=== PATIENT | female | born 1975 | race Caucasian/White ===

== ENCOUNTER 2017-06-25 22:13 | Inpatient (IN) ==
[2017-06-25 23:56] LABS: Basophils % 0.2 %; Hematocrit 43.9 % (35.3-44.9); Hemoglobin 14.9 g/dL (11.5-15.4); Immature Granulocytes % 0.4 % (0-4); Lymphocytes # 1.5 K/mcL (0.6-4.6); Lymphocytes % 18.2 %; Mean Corpuscular HGB Conc 33.9 g/dL (31.6-35.5); Mean Corpuscular Volume 91.5 fL (83.0-100.0); Mean Platelet Volume 8.8 fL (9.4-12.4); Monocytes # 0.6 K/mcL (0.0-1.3); Monocytes % 7.4 %; Neutrophils # 5.9 K/mcL (1.6-8.9); Platelet Count 258 K/mcL (140-400); Segmented Neutrophils % 73.8 %
[2017-06-26 00:15] LABS: BUN/Creatinine Ratio 17 (6-26); Blood Urea Nitrogen 11 mg/dL (6-20); Calcium 9.4 mg/dL (8.6-10.3); Carbon Dioxide 22 mEq/L (23-29); Chloride 108 mEq/L (98-107); Glucose 101 mg/dL (70-105); Osmolality,Calculated 286 (280-300); Potassium 3.9 mEq/L (3.5-5.1); Sodium 138 mEq/L (136-145); eGFR For African Americans > 60 (> 60); eGFR For Non-African Americans > 60 (> 60)
--- NOTE | 2017-06-26 01:13 | Emergency Department Note ---
Disposition Clinical Impression: Congestive heart failure Qualifiers: Heart failure type: unspecified Heart failure chronicity: unspecified Qualified Code(s): I50.9 - Heart failure, unspecified Disposition: Admitted As Inpatient Condition: Good Referrals: Janice Carpenter CNP [Primary Care Provider] - Forms: ED Satisfaction Letter Time of Disposition: 03:25 General Adult HPI - General Chief complaint: ED Shortness of Breath/Dyspnea Stated complaint: mile Time Seen by Provider: 06/26/17 00:56 Source: patient Mode of arrival: ambulatory Limitations: no limitations Nursing Notes Reviewed: Yes Vital Signs Reviewed: Yes - History of Present Illness HPI Narrative: 42-year-old female with history of hypertension but does not take any medications for this for evaluation of dyspnea as well as intermittent back pain. Symptom onset spelled the past few days. Patient notes some orthopnea and worse at night with lying back. The patient reports a cough but it appears to be nonproductive. Patient also notes back pain which appears to be localized appears to be intermittent between her shoulder blades at times. Patient currently denying any pain. Denies any nausea vomiting diaphoresis. Reports a history of hypertension but states that she did not taking medications because of side effects. Patient denies any history of heart disease. No history of congestive heart failure. No diabetes. Patient denies any lower extremity edema. Pain Scale: 3 - Related Data Allergies Allergy/AdvReac Type Severity Reaction Status Date / Time No Known Allergies Allergy Verified 06/25/17 22:14 All systems ED: reviewed and negative except as stated. Constitutional: Denies: fever Cardiovascular: Denies: chest pain Respiratory: Reports: cough, dyspnea. Denies: sputum production Gastrointestinal: Denies: abdominal pain, nausea, vomiting, diarrhea Musculoskeletal: Reports: back pain Past Medical History - Past Medical History Source: patient Medical history: Reports: hypertension - Social History Smoking Status: Never smoker Alcohol use: Reports: occasionally, recent Physical Exam - General Limitations: no limitations General appearance: alert, in no apparent distress - Head Head exam: atraumatic, normocephalic, normal inspection - Eye Eye exam: Present: normal appearance, PERRL, EOMI - ENT ENT exam: normal exam, normal oropharynx, mucous membranes moist - Neck Neck exam: Present: normal inspection - Chest Chest inspection: Present: normal inspection, symmetric chest wall rise - Respiratory Respiratory exam: Present: normal lung sounds bilaterally. Absent: respiratory distress, accessory muscle use - Cardiovascular Cardiovascular exam: Present: regular rate, normal rhythm. Absent: systolic murmur - Abdominal Exam Abdominal exam: Present: soft, Non-Tender - Extremities Exam Extremities exam: Present: normal inspection. Absent: pedal edema - Back Exam Back exam: Present: normal inspection - Neurological Exam Neurological exam: Present: alert, oriented X3, CN II-XII intact - Skin Skin exam: Present: warm, dry, intact, normal color Course Course Narrative: Patient seen and examined. Patient denies any pain medicine at this time. Patient's not hypoxic. Patient's labs initially ordered from triage. Patient does have uncontrolled hypertension. Patient's troponins negative. BNP mildly elevated. Chest x-ray shows evidence of congestive heart failure with pulmonary vascular congestion. Patient will get Lasix as well as nitroglycerin. Disposition likely admission for new onset heart failure. - Reevaluation(s) Reevaluation #1: Serial EKGs show no changes. Patient does have a left bundle branch with no evidence of Sgarbossa criteria. Patient does have evidence of left ventricular hypertrophy. Time: 02:04 Vital Signs Temperature 97.4 F L 06/25/17 22:14 Pulse Rate 115 06/25/17 22:14 Respiratory Rate 22 06/25/17 22:14 Blood Pressure 217/149 06/25/17 22:14 O2 Sat by Pulse Oximetry 94 06/25/17 22:14 Temperature 97.4 F L 06/25/17 22:14 Pulse Rate 103 06/26/17 01:21 Respiratory Rate 16 06/26/17 01:21 Blood Pressure 197/142 06/26/17 01:21 O2 Sat by Pulse Oximetry 96 06/26/17 01:21 Oxygen Delivery Oxygen Delivery Room Air Medical Decision Making - MDM Narrative Medical decision making narrative: Patient presents with new onset heart failure. Patient does have elevated BNP with chest x-ray findings consistent with congestive heart failure or pulmonary edema. Patient received nitroglycerin as well as Lasix. Patient does not require any supplement oxygen. Patient did get a CTA of the chest given concerns of aortic pathology with back pain as well as pulmonary embolism given the degree of subjective dyspnea. Patient will be admitted to the hospitalist service for further care management likely stress test and formal echo to evaluate heart function. Patient's agreeable to plan of care. - Lab Data Lab results reviewed: Yes I reviewed the patient's lab results. Result diagrams: 06/25/17 23:49 06/25/17 23:49 Lab Results 06/25/17 06/25/17 06/25/17 Range/Units 23:49 23:49 23:49 WBC 8.0 (4.3-11.1) K/mcL RBC 4.80 (3.82-4.97) M/mcL Hgb 14.9 (11.5-15.4) g/dL Hct 43.9 (35.3-44.9) % MCV 91.5 (83.0-100.0) fL MCH 31.0 (28.0-33.3) pg MCHC 33.9 (31.6-35.5) g/dL RDW 13.0 (11.5-14.5) % Plt Count 258 (140-400) K/mcL MPV 8.8 L (9.4-12.4) fL Immature Gran % 0.4 (0-4) % Seg Neutrophils % 73.8 % Lymphocytes % 18.2 % Monocytes % 7.4 % Eosinophils % 0.0 % Basophils % 0.2 % Neutrophils # 5.9 (1.6-8.9) K/mcL Lymphocytes # 1.5 (0.6-4.6) K/mcL Monocytes # 0.6 (0.0-1.3) K/mcL Eosinophils # 0.0 (0.0-0.6) K/mcL Basophils # 0.0 (0.0-0.2) K/mcL Sodium 138 (136-145) mEq/L Potassium 3.9 (3.5-5.1) mEq/L Chloride 108 H (98-107) mEq/L Carbon Dioxide 22 L (23-29) mEq/L BUN 11 (6-20) mg/dL Creatinine 0.66 (0.60-1.20) mg/dL Est GFR ( Amer) > 60 (> 60) Est GFR (Non-Af Amer) > 60 (> 60) BUN/Creatinine Ratio 17 (6-26) Glucose 101 (70-105) mg/dL Calculated Osmolality 286 (280-300) Lactic Acid 0.8 (0.5-2.2) mmol/L Calcium 9.4 (8.6-10.3) mg/dL Troponin I (< 0.04) ng/mL B-Natriuretic Peptide (Less than 100) pg/mL Serum , Qual (Negative) 06/25/17 06/25/17 06/26/17 Range/Units 23:49 23:49 02:31 WBC (4.3-11.1) K/mcL RBC (3.82-4.97) M/mcL Hgb (11.5-15.4) g/dL Hct (35.3-44.9) % MCV (83.0-100.0) fL MCH (28.0-33.3) pg MCHC (31.6-35.5) g/dL RDW (11.5-14.5) % Plt Count (140-400) K/mcL MPV (9.4-12.4) fL Immature Gran % (0-4) % Seg Neutrophils % % Lymphocytes % % Monocytes % % Eosinophils % % Basophils % % Neutrophils # (1.6-8.9) K/mcL Lymphocytes # (0.6-4.6) K/mcL Monocytes # (0.0-1.3) K/mcL Eosinophils # (0.0-0.6) K/mcL Basophils # (0.0-0.2) K/mcL Sodium (136-145) mEq/L Potassium (3.5-5.1) mEq/L Chloride (98-107) mEq/L Carbon Dioxide (23-29) mEq/L BUN (6-20) mg/dL Creatinine (0.60-1.20) mg/dL Est GFR ( Amer) (> 60) Est GFR (Non-Af Amer) (> 60) BUN/Creatinine Ratio (6-26) Glucose (70-105) mg/dL Calculated Osmolality (280-300) Lactic Acid (0.5-2.2) mmol/L Calcium (8.6-10.3) mg/dL Troponin I < 0.03 (< 0.04) ng/mL B-Natriuretic Peptide 653 H (Less than 100) pg/mL Serum , Qual Negative (Negative) - Radiology Data Radiology results reviewed: Yes I reviewed the patient's radiology results. Chest X-Ray 06/25/17 23:21 IMPRESSION: Bilateral perihilar infiltrates, pneumonia or related to cardiogenic pulmonary edema with Tanya B-lines at the lung bases. No significant pleural fluid. D/ / Rasheed Scherer MD / Rasheed Scherer MD Interpreting Provider: Rasheed Scherer MD Chest X-Ray 06/25/17 23:21 IMPRESSION: Bilateral perihilar infiltrates, pneumonia or related to cardiogenic pulmonary edema with Tanya B-lines at the lung bases. No significant pleural fluid. D/ / Rasheed Scherer MD / Rasheed Scherer MD Interpreting Provider: Rasheed Scherer MD Chest CTA 06/26/17 01:59 IMPRESSION: 1. No definite scan evidence for pulmonary embolus. 2. Pleural effusions and pulmonary edema. D/ / Devyn Bryan MD / Devyn Bryan MD Interpreting Provider: Devyn Brayn MD - EKG Data EKG #1 EKG attestation: Yes I reviewed and interpreted this EKG. EKG shows normal: sinus rhythm Rate: tachycardia Rhythm: NSR [place]/QRS: LBBB Voltage: increased voltage throughout Interpretation: no acute changes, nonspecific ST-T wave changes S.B.A.R. - S.B.A.R. Situation: Demographics Background: Presenting Complaint Assessment: Vital Signs, Course and respsone to treatment, Patient/Family Expectation Recommendation: Barrier(s) to disposition, Recommendation based on pending studies, treatments, or consults S.B.A.R. Report Given to: Dr. Grace Amaya.B.AJesus Alberto Repor Time: 02:43 Attestation Statement - Attestation Attestation: I, Rojelio Alicea DO, examined this patient [id number] and my medical decision-making was reviewed with Dr. Dakota Willard, Resident Physician. I agree with the documented findings, disposition and treatment plan as described except to the extent set forth below. Please see my progress notes for details. 42-year-old female presents to the emergency room complaining of shortness of breath. Patient has had some intermittent subscapular back pain. Patient denies any other significant medical history this point. She has never had a workup for this issue. Patient over the last 2-3 weeks his had increased shortness of breath and some pressure along with intermittent mucus production. Patient attributed to stress secondary to job-related issues. Currently she is denying chest pain fevers chills nausea vomiting or diarrhea. Denies any headache vision changes at this time. Denies any recent illnesses trauma or injury. Her main complaint is intermittent exertional dyspnea. Physical exam, patient does have tachycardia. Patient also has clear lungs heart is regular but tachycardic abdomen is soft. She has no signs of pitting edema. She has no visible signs of infectious etiology. EKG collected in the triage area shows a left bundle branch with some mild lateral ischemia and T-wave inversions in lead 1 aVL and V6. There is depression noted in V6 but no other signs of ST segment elevation or reciprocal changes at this time. Repeat EKG was completed at the bedside about 1 hour after arrival in the morphology appears to be similar with slightly less depression in lead V6. The previous EKG for comparison was from 03/06/05. Patient again is denying chest pain and has had mild intermittent shortness of breath. Patient will have detailed evaluation completed for concern for intrathoracic and pulmonary related issues. Patient has chest x-ray is concerning for vascular congestion and pulmonary edema along with an elevated BNP. Her troponin is negative. Her symptoms were present for 2-3 weeks which makes the idea of cardiac ischemia or myocardial ischemia less likely secondary to the negative troponin at this time. Patient will be provided with nitroglycerin here to help with vascular congestion and her blood pressure. Patient is otherwise clinically stable. She denies any symptoms at this time. She will also require admission. Patient will have CT angiography to rule out any other potential pathology secondary to the pain between the scapula. Patient understands this is comfortable with the plan. See detailed documentation of the physical exam, medical intervention, medical decision- making and disposition and the resident physician's note. No critical care provider this patient's treatment course at this time. [address] angiography was negative for pulmonary emboli. Patient has pleural effusions with primary congestion. No other acute etiology of this time. Admission process to be completed. Pressure still elevated. Nitroglycerin tablets will be provided at this time the topical nitroglycerin paste did not help with the pressure. Continue to monitor the emergency room until admission process is completed.
[2017-06-26] MEDS ORDERED: Furosemide 40 MG/4 ML VIAL IVP ONE (01:58)
[2017-06-26] MEDS ORDERED: Nitroglycerin 1 INCH/GM PACKET TP ONE (01:58)
[2017-06-26] MEDS ORDERED: Nitroglycerin 0.4 MG TAB.SUBL SL PRN (03:19)
[2017-06-26] MEDS ORDERED: Ondansetron 4 MG/2 ML VIAL ONE (03:40)
[2017-06-26] MEDS ORDERED: Ondansetron 4 MG/2 ML VIAL IVP ONE (03:42)
[2017-06-26] MEDS ORDERED: niCARdipine 40 MG/200 ML MLS IVC SCH (04:15)
[2017-06-26] MEDS ORDERED: Acetaminophen 325 MG TABLET PO PRN (04:48)
[2017-06-26] MEDS ORDERED: Naloxone 0.4 MG/ML INJ IVP PRN (04:48)
[2017-06-26] MEDS ORDERED: traMADol 50 MG TABLET PO PRN (04:48)
--- NOTE | 2017-06-26 05:11 | Internal Med History&Physical ---
Date of Encounter: 06/26/17 Time of Encounter: 04:30 Assessment and Plan (1) Hypertensive emergency Current visit: Yes Status: Acute 1. Patient BP dropped to 120's systolic with sublingual NTG in ER and she became quite symptomatic and had near syncopal event despite normal BP. I suspect she has been running chronically in the 180-200's with SBP. 2. We will place her on Nicardipine drip for continuous BP control with goal SBP to be 160-180 for the first 12-24 hours. 3. Once BP stabilized, she will need oral medication regimen to be initiated. 4. I spoke with her RN and discussed SBP goal with Nicardipine titration parameters. Will attempt to avoid further drops in BP. 5. Consider consulting nephrology for BP medication guidance and further outpatient follow up. (2) Congestive heart failure Current visit: Yes Status: Acute 1. Likely due to hypertensive emergency and hypertensive heart disease. 2. Patient diuresed significantly in ER after Lasix. 3. BP control with Nicardipine drip as above. 4. Will hold off on further Lasix dosing unless clinical findings dictate otherwise. 5. Will cycle troponins, EKG's, order TSH, and ECHO. 6. Will consult cardiology to assess for further cardiac work-up as necessary. Qualifiers: Heart failure type: unspecified Heart failure chronicity: acute Qualified Code(s): I50.9 - Heart failure, unspecified (3) DVT prophylaxis Current visit: Yes Status: Acute 1. Heparin SQ. Internal Medicine - H&P: HPI Chief complaint: SOB; elevated BP Admitted From: Emergency Dept Plans for Post Hospital Care: Home History of present illness: Ms. Pham is a 42 year old female who presents with a 24-36 hour history of chest tightness, heaviness, dyspnea, dyspnea on exertion, and orthopnea. She noted her blood pressure was rather elevated. Because of ongoing symptoms and hypertension, she came to the ER. In the ER, she was diagnosed with acute congestive heart failure based upon clinical exam and radiographic imaging. Her blood pressure was 217/149 upon presentation. She received topical nitroglycerin, Lasix, and oxygen. Her blood pressure did improve but rebounded. However, she did diuresis a good bit of urine with noted symptomatic improvement of her CHF symptoms. Chest x-ray confirmed CHF findings. She was subsequently admitted to hospitalist service. Upon my assessment of patient in the ER, she feels much better and is breathing easily and comfortably now. She can now lie flat without profound dyspnea. Blood pressure is still elevated roughly 160s/120s. She denies any chest pain presently. Her EKG is suggestive of LVH and hypertensive heart disease. Patient states she has a history of hypertension and it has not been controlled. She had been on several medications but she quit them several months ago due to side effects and intolerance of medications. [facility] to [facility] , she has not checked her blood pressure at home regularly. She denies any headaches, vision changes, hematuria, or any ongoing kidney problems. Past Med Surg Social Fam HX - Past Medical History Attestation: Yes The following information was validated with the patient. Source: patient, old records reviewed, obtained from family Medical history: hypertension Psychiatric history: no psych history - Past Surgical History Surgical History: appendectomy - Social History Smoking Status: Never smoker Smokeless Tobacco Status: No Alcohol use: occasionally, recent Drug use: none Occupational status: employed Current living situation: Home, With Family Activity Level: Independent ambulation Recent Out of Country Travel Within the Last 8 Weeks: No - Family History Mother Hx Family Cardiac Disorders: Yes (HTN) Father History Unknown: Yes Internal Medicine - H&P: Meds 3 Allergy/AdvReac Type Severity Reaction Status Date / Time No Known Allergies Allergy Verified 06/25/17 22:14 - Constitutional Constitutional: weight gain, no chills, no fever(s), no night sweats - EENT Eyes: no blurry vision, no change in vision, no diplopia Ears: no ear pain, no tinnitus Nose, mouth and throat: no nasal congestion, no nasal discharge, no sinus pressure, no sore throat - Cardiovascular Cardiovascular ROS IM: chest pain, dyspnea, dyspnea on exertion, edema, orthopnea, palpitations, paroxysmal nocturnal dyspnea, no irregular heart rhythm , no lightheadedness - Respiratory Respiratory: no cough, no hemoptysis, no chest congestion, no excessive phlegm production, no change in phlegm color - Gastrointestinal Gastrointestinal: no abdominal pain, no diarrhea, no hematemesis, no hematochezia, no melena, no nausea, no vomiting - Genitourinary Genitourinary: no dysuria, no flank pain, no hematuria - Musculoskeletal Musculoskeletal ROS IM: no arthralgias, no back pain, no joint swelling - Integumentary Integumentary IM: no rash, no jaundice - Neurological Neurological ROS: no disequilibrium, no dizziness, no focal weakness, no frequent falls, no headache(s), no vertigo, no weakness - Psychiatric Psychiatric: no anxiety, no depression - Endocrine Endocrine IM: no polydipsia, no polyuria - Hematologic/Lymphatic Hematologic/Lymphatic: no easy bruising, no lymphadenopathy - Allergic/Immunologic Allergic/Immunologic: no wheezing, no GI upset with certain foods - Constitutional Vitals: Temp Pulse Resp BP Pulse Ox 98.3 F 85 19 156/110 92 06/26/17 04:51 06/26/17 04:51 06/26/17 04:51 06/26/17 04:51 06/26/17 04:51 General appearance: Present: cooperative, A&O X 3, pleasant, no acute distress, answers questions appropriately - Head Head exam: Present: atraumatic, normal inspection - Eye Eye exam: Present: EOMI, normal appearance, PERRL. Absent: scleral icterus Pupils: Present: normal accommodation - ENT ENT exam: Present: mucous membranes moist, normal exam, normal oropharynx - Neck Neck exam general surgery: Present: full ROM, supple. Absent: lymphadenopathy, tenderness, nuchal rigidity, thyromegaly - Expanded Neck Exam Neck exam: Absent: carotid bruit - Respiratory Respiratory exam: Present: CTAB. Absent: accessory muscle use, chest wall tenderness, rales, respiratory distress, rhonchi, wheezes - Cardiovascular Cardiovascular exam: Present: +S1, +S2. Absent: diastolic murmur, JVD, systolic murmur - GI/Abdominal GI/Abdominal exam: Present: normal bowel sounds, soft. Absent: hepatomegaly, mass, splenomegaly, tenderness - Extremities Exam Extremities exam: Present: full ROM, normal capillary refill, pedal edema (trace ), warm, radial pulses palpable and symmetrical. Absent: calf tenderness, joint swelling - Back Exam Back exam: Absent: CVA tenderness (L), CVA tenderness (R) - Neurological Exam Neurological exam: Present: alert, CN II-XII intact, oriented X3, no focal deficits, strengths equal and symetr throughout - Psychiatric Psychiatric exam: Present: normal affect, normal mood - Skin Skin exam: Present: dry, warm. Absent: rash Internal Med - H&P Results - Labs CBC & Chem 7: 02/21/18 23:49 06/25/17 23:49 - EKG Data -: EKG Interpreted by Myself (LVH and IVCD findings consistent w hypertensive heart disease) - Diagnostic Studies Chest x-ray Status: image reviewed by me (CHF)
[2017-06-26] MEDS: niCARdipine 40 MG/200 ML MLS IVC SCH (06:11)
[2017-06-26] MEDS: *HR* Heparin 5,000 UNIT/ML VIAL SQ SCH ×3 (06:50→22:00)
--- NOTE | 2017-06-26 09:21 | Cardiology Consult Note ---
<Christine De Jesus - Last Filed: 06/26/17 09:34> Date of Encounter: 06/26/17 Time of Encounter: 08:00 Assessment and Plan (1) Congestive heart failure Current Visit: Yes Status: Acute Patient presented with acute shortness of breath, difficulty breathing, and orthopnea. Suspect acute diastolic CHF/hypertensive heart disease given poorly treated/non- compliance HTN as outpatient. BNP: 653. CXR: bilateral perihilar infiltrates CT chest: pleural effusions and pulmonary edema. Symptoms significantly improved s/p diuresis. Patient appears nearly euvolemic upon exam. Check TTE. Strict I&Os, daily weights, Na/fluid restriction diet. Will continue to follow. Qualifiers: Heart failure type: unspecified Heart failure chronicity: acute Qualified Code(s): I50.9 - Heart failure, unspecified (2) Hypertensive emergency Current Visit: Yes Status: Acute BP upon presentation 217/149. Patient reports untreated HTN for "years." Was on cardene gtt, now off. Will start amlodipine 5 mg daily now, will likely need to increase dose. May also need additional BP agent, continue to monitor closely. Recommend conservative titration of antihypertensives. Kidney function normal. Discussion w patient/family: The assessment and plan as outlined above was discussed with the patient and/or family members who expressed understanding and agreement. All questions were answered. Thank you for involving us in the care of your patient. Please call with any questions. The patient will be discussed and reviewed with Dr. Florez, changes to be made accordingly. History of Present Illness Consult date: 06/26/17 Requesting physician: Awais Edwards Consult reason: CHF Chief complaint: Shortness of breath History of present illness: Ms. Pham is a 42 year old female with PMHx significant for prior tobacco abuse and untreated HTN who presented to the ED with 2 day history of worsening shortness of breath, difficulty breathing, and orthopnea. She reports midsternal chest discomfort at times, feels may be related to GERD. Chest discomfort typically occurs after eating, described as non-radiating, and not related to exertion. Upon arrival to ED, BP was severely elevated at 217/149. Patient reports that she was diagnosed with HTN in 2004, took medications for "awhile" but then stopped. Does report blurred vision and headaches at times when blood pressure is elevated. ECG upon arrival demonstrates LBBB, which is new compared to ECG in 2005. CXR demonstrated bilateral perihilar infiltrates, Chest CTA demonstrated pleural effusions and pulmonary edema. Upon exam, symptoms have significantly improved after diuresis. Past Med Surg Social Fam HX - Past Medical History Attestation: Yes The following information was validated with the patient. Source: patient Medical history: GERD, hypertension Psychiatric history: no psych history - Past Surgical History Surgical History: appendectomy - Social History Smoking Status: Former smoker Smokeless Tobacco Status: No Alcohol use: occasionally, recent Drug use: none - Family History Mother Hx Family Cardiac Disorders: Yes (HTN) Father History Unknown: Yes Medications and Allergies No Known Home Drugs 06/26/17 [History] 3 Allergy/AdvReac Type Severity Reaction Status Date / Time No Known Allergies Allergy Verified 06/25/17 22:14 All Systems Review: The remainder of the systems were reviewed and are negative - Cardiovascular Cardiovascular: as per HPI Physical Examination Vital Signs, Last 4 Hours Temp Pulse Resp BP Pulse Ox 06/26/17 07:30 69 06/26/17 07:02 98.2 F 74 15 151/105 96 06/26/17 06:55 162/106 06/26/17 06:51 160/106 06/26/17 06:50 160/106 06/26/17 06:45 139/94 06/26/17 06:40 136/90 06/26/17 06:20 130/79 06/26/17 06:15 127/83 06/26/17 06:10 128/85 06/26/17 05:50 128/87 General: Conversant, No Apparent Distress HEENT: Atraumatic, Normocephaly, Mucus Membranes Moist Neck: No JVD, Normal carotid pulses Cardiac: Reg Rate and Rhythm, Normal S1 and S2, No Murmur Lungs: Normal Breath Sounds, No Wheeze, Rales, Rhonchi Neuro: Alert and responsive, No focal deficits noted Abdomen: Soft, Non-Tender Skin: No rashes noted on visualized skin Musculoskeletal: No Chest Wall Tenderness Extremities: No Clubbing, No Cyanosis, No Edema, Normal Pulses Results 06/25/17 23:49 06/25/17 23:49 Lab Results 06/26/17 06/26/17 05:45 05:45 Troponin I < 0.03 TSH 1.665 Active Medications Acetaminophen (Tylenol) 650 mg PO Q6HR PRN PRN Reason: Mild Pain/Fever Stop: 12/26/17 04:49 Heparin Sodium (Porcine) (Heparin) 5,000 unit SQ Q8HCO [place] Stop: 12/26/17 06:01 Last Admin: 06/26/17 06:50 Dose: 5,000 unit Nicardipine HCl (Cardene Premix 40mg/200ml) 40 mg in 200 mls @ 25 mls/hr IVC .Q8H B[place]LEY; 5 MG/HR PRN Reason: Protocol Stop: 12/26/17 04:16 Last Titration: 06/26/17 06:38 Dose: 0 mg/hr, 0 mls/hr Naloxone HCl (Narcan) 0.4 mg IVP Q2MIN PRN PRN Reason: SEE COMMENTS Stop: 12/26/17 04:49 Tramadol HCl (Ultram) 50 mg PO Q6HR PRN PRN Reason: Moderate Pain Stop: 12/26/17 04:49 - Imaging and Cardiology Echo: report reviewed Other Results: 12 hour tele: avg HR=84 LBBB, SR - EKG Interpretation EKG results cardiology: personally reviewed Consult Discharge Plan - Plan Referrals: Janice Carpenter, BUSINESS SERVICES ASSOCIATE [Primary Care Provider] - 07/03/17 11:00 am () <Mary Florez - Last Filed: 06/26/17 12:58> Date of Encounter: 06/26/17 - Attending Attestation I examined this patient and my medical decision-making was reviewed with the BUSINESS SERVICES ASSOCIATE. I agree with the documented findings, disposition and treatment plan as described. Ms. Pham presented with shortness of breath and orthopnea symptoms likely secondary to acute diastolic CHF secondary to poorly controlled hypertension. BNP elevated, pulmonary edema on chest CT. She received IV lasix and reports resolution of her symptoms. Amlodipine add as well as spironolactone ( counseled against while on spironolactone - antiandrogen effects). Recommend echo for evaluation of structural heart disease - ECG suggestive of LVH. Renal US to evaluate for patency of renal arteries. She denies use of OCPs and does not have a history of sleep apnea. Does report history of HTN in her mother at a young age. Further recommendations pending testing. Assessment and Plan Discussion w patient/family: The assessment and plan as outlined above was discussed with the patient and/or family members who expressed understanding and agreement. All questions were answered. Thank you for involving us in the care of your patient. Please call with any questions. History of Present Illness History of present illness: Ms. Pham is a 42 year old female All Systems Review: The remainder of the systems were reviewed and are negative Physical Examination Vital Signs, Last 4 Hours Temp Pulse Resp BP Pulse Ox 06/26/17 11:59 98 F 81 15 164/124 95 Results 06/25/17 23:49 06/25/17 23:49 Lab Results 06/26/17 06/26/17 05:45 05:45 Troponin I < 0.03 TSH 1.665
--- NOTE | 2017-06-26 09:53 | Event Note ---
<Marvin Vizcarra - Last Filed: 06/26/17 15:07> Date of Encounter: 06/26/17 Time of Encounter: 09:05 Ms. Pham is a 42 yo female admitted for HTN emergency with BP 217/149 initially. Notes long standing hx of HTN (years) without treatment. Noted difficulty n breathing the past couple days. Patient's BP dropped to 120s with SL nitro, patient was pre-syncopal. Slow titration of BP was started with nicardipine. CTA of chest negative for dissection, however, concern for LV hypertrophy. Cardiology consulted and following, appreciate their continued recommendations. PE: Constitutional-No acute distress; HEENT- normocephalic, atraumatic, sight and hearing grossly intact, EOMI, neck supple; CV- RRR, no murmur; Resp- CTA, no wheeze, rales, or rhonchi; Extremities- no erythema, edema, or tenderness; Skin- warm, no rashes; Neuro- alert, oriented, no focal deficits. A/P: 1) HTN emergency: Avoid SL nitro Cardene discontinued, Norvasc started. Goal of SBP 160-180 in first 12-24 hrs. Will likely need to increase norvasc. Cardiology ordered renal artery US. 2) Congestive heart failure: improved with diuresis. CXR showed bilateral perihilar infiltrated, CT showed pleural effusion and pulmonary edema. TTE showing EF of 45-50%, mild LV hypertrophy 3) LBBB with LV strain -Seen on EKG -Consider cath as outpatient 4)LVH -evident on CTA, EKG, and echo. <Juan oJse Covington - Last Filed: 06/26/17 17:57> Date of Encounter: 06/26/17 Pt admitted early this AM with hypertensive emergency. Her BP has improved some and she is feeling better. Exam alert Comfortable Mucus membranes dry Heart reg No wheeze Agree with above assessment and plan.
[2017-06-26] MEDS: Spironolactone 25 MG TABLET PO SCH (11:49)
[2017-06-26] MEDS: amLODIPine 5 MG TABLET PO SCH (11:49)
--- NOTE | 2017-06-26 15:15 | Electrocardiograph Report ---
[address] [place], [place] [address] Test Date: 2017-06-25 Pat Name: Heidi Pham Department: 104 Room: 2N03 Gender: F Trim Mounter: CPB : 1975 Requested By: Rojelio Alicea Order Number: [id number] Reading MD: Mary Florez Measurements Intervals [place] Rate: 106 P: 53 IA: 165 QRS: 21 QRSD: 160 T: 79 QT: 383 QTc: 445 Interpretive Statements SINUS TACHYCARDIA LEFT BUNDLE BRANCH BLOCK Electronically Signed On 06-26-2017 15:13:57 EST by Mary Florez
--- NOTE | 2017-06-26 15:16 | Electrocardiograph Report ---
[place] [address] Test Date: 2017-06-26 Pat Name: Heidi Pham Department: 103 Room: 2N03 Gender: Cdl Instructor: TSERING : 1975 Requested By: Juan Jose Covington Order Number: [id number] Reading MD: Mary Florez Measurements Intervals [place] Rate: 95 P: 53 [place]: 179 QRS: -12 QRSD: 158 T: 101 QT: 409 QTc: 462 Interpretive Statements SINUS RHYTHM LEFT ATRIAL ENLARGEMENT [-0.15mV P WAVE IN V1/V2] LEFT BUNDLE BRANCH BLOCK [120+ ms QRS DURATION, 80+ ms Q/S IN V1/V2, 85+ ms R IN I/aVL/V5/V6] Electronically Signed On 06-26-2017 15:14:27 EST by Mary Florez
--- NOTE | 2017-06-26 15:18 | Electrocardiograph Report ---
[place] [address] Test Date: 2017-06-26 Pat Name: Heidi Pham Department: 110 Room: 2N03 Gender: F Armament Mechanic: HERMINIO : 1975 Requested By: Awais Edwards Order Number: [id number] Reading MD: Mary Florez Measurements Intervals [place] Rate: 76 P: -29 [place]: 159 QRS: -25 QRSD: 162 T: 147 QT: 452 QTc: 482 Interpretive Statements SINUS RHYTHM LEFT BUNDLE BRANCH BLOCK Electronically Signed On 06-26-2017 15:17:04 EST by Mary Florez
[2017-06-27 05:16] LABS: Basophils % 0.9 %; Hematocrit 41.3 % (35.3-44.9); Hemoglobin 14.2 g/dL (11.5-15.4); Immature Granulocytes % 0.2 % (0-4); Lymphocytes # 1.9 K/mcL (0.6-4.6); Mean Corpuscular HGB Conc 34.4 g/dL (31.6-35.5); Mean Corpuscular Volume 90.2 fL (83.0-100.0); Mean Platelet Volume 8.9 fL (9.4-12.4); Monocytes # 0.5 K/mcL (0.0-1.3); Monocytes % 11.6 %; Platelet Count 233 K/mcL (140-400); Red Blood Count 4.58 M/mcL (3.82-4.97); Red Cell Distribution Width 13.2 % (11.5-14.5); Segmented Neutrophils % 44.3 %
[2017-06-27 05:19] LABS: Prothrombin Time 10.9 Seconds (9.4-12.1)
[2017-06-27] MEDS: *HR* Heparin 5,000 UNIT/ML VIAL SQ SCH ×3 (05:20→22:17)
[2017-06-27 05:21] LABS: Activated Partial Thrombo Time 27.4 Seconds (26.0-36.0)
[2017-06-27 05:29] LABS: Alanine Aminotransferase 17 Units/L (7-52); Albumin 3.8 g/dL (3.5-5.7); Albumin/Globulin Ratio 1.7 (1.1-2.2); Alkaline Phosphatase 46 Units/L (34-104); Aspartate Amino Transferase 22 Units/L (13-39); BUN/Creatinine Ratio 22 (6-26); Bilirubin,Total 0.5 mg/dL (0.3-1.0); Blood Urea Nitrogen 15 mg/dL (6-20); Calcium 9.2 mg/dL (8.6-10.3); Carbon Dioxide 24 mEq/L (23-29); Chloride 107 mEq/L (98-107); Cholesterol 201 mg/dL (< 200); Globulin 2.2 g/dL (2.4-3.5); Glucose 96 mg/dL (70-105); HDL Cholesterol 68 mg/dL (40-59); LDL Cholesterol,Calculated 111 mg/dL (0-99); Osmolality,Calculated 285 (280-300); Potassium 3.7 mEq/L (3.5-5.1); Sodium 137 mEq/L (136-145); Triglycerides 111 mg/dL (< 150); eGFR For African Americans > 60 (> 60); eGFR For Non-African Americans > 60 (> 60)
[2017-06-27] MEDS: amLODIPine 5 MG TABLET PO SCH (08:53)
[2017-06-27] MEDS: Spironolactone 25 MG TABLET PO SCH (08:53)
--- NOTE | 2017-06-27 09:57 | Internal Med Progress Note ---
<Marvin Vizcarra - Last Filed: 06/27/17 12:40> Date of Encounter: 06/27/17 Time of Encounter: 09:25 - Assessment and plan (1) Hypertensive emergency Current Visit: Yes Status: Acute Assessment and plan: -Avoid SL nitro -Cardene discontinued, Norvasc started. -Consider increasing Norvasc vs addition of Beta jolene. -Current SBP in the 150, however, most recent DBP was very elevated at 128. -Renal artery US report pending. -Concern for secondary heart strain and/or possible ischemia; cardiology consulted, see complete plan below. (2) Congestive heart failure Current Visit: Yes Status: Acute Assessment and plan: Clinically improved with diuresis. CXR showed bilateral perihilar infiltrated, CT showed pleural effusion and pulmonary edema. TTE showing EF of 45-50%, mild LV hypertrophy, atypical septal motion consistent with BBB.. Qualifiers: Heart failure type: unspecified Heart failure chronicity: acute Qualified Code(s): I50.9 - Heart failure, unspecified (3) LBBB (left bundle branch block) Current Visit: Yes Status: Acute Assessment and plan: -New LBBB seen on EKG 06/25/17 &06/26/17, not previously on EKG from 2004. -LV strain also sen on EKG with ST depression in V6. -Seen and evaluated by Cardiology, planning for [facility] today. (4) LVH (left ventricular hypertrophy) due to hypertensive disease Current Visit: Yes Status: Acute Assessment and plan: -evident on CTA, EKG, and echo. -See above for complete plan. Qualifiers: Heart failure presence: with heart failure Qualified Code(s): I11.0 - Hypertensive heart disease with heart failure (5) DVT prophylaxis Current Visit: Yes Status: Acute Assessment and plan: Continue SQ heparin. - Time Spent With Patient less than 15 minutes - Subjective Interval history: Patient seen and examined, sitting up in bed. No acute distress, denies chest pain, dyspnea, abdominal pain or swelling. SBP in the 150's on exam. - Constitutional Vitals: Temp Pulse Resp BP Pulse Ox 98 F 78 19 155/128 94 06/27/17 06:57 06/27/17 08:00 06/27/17 06:57 06/27/17 06:57 06/27/17 06:57 General appearance: Present: cooperative, A&O X 3, pleasant, no acute distress, answers questions appropriately - Head Head exam: Present: atraumatic, normocephalic - Eye Eye exam: Present: EOMI, conjuntiva pink, sclera anicteric - Neck Neck exam general surgery: Present: supple - Respiratory Respiratory exam: Present: CTAB. Absent: accessory muscle use, rales, rhonchi, wheezes - Cardiovascular Cardiovascular exam: Present: RRR, +S1, +S2. Absent: diastolic murmur, gallop, rubs, systolic murmur - GI/Abdominal GI/Abdominal exam: Present: soft. Absent: distended, tenderness - Extremities Exam Extremities exam: Present: warm. Absent: calf tenderness, cyanotic, pedal edema - Neurological Exam Neurological exam: Present: alert, oriented X3, no focal deficits. Absent: facial droop, speech deficit - Skin Skin exam: Present: dry, intact Internal Medicine: Result - Labs CBC & Chem 7: 06/27/17 04:50 06/27/17 04:50 Labs: Short CBC 06/27/17 Range/Units 04:50 WBC 4.5 (4.3-11.1) K/mcL Hgb 14.2 (11.5-15.4) g/dL Hct 41.3 (35.3-44.9) % Plt Count 233 (140-400) K/mcL Neutrophils # 2.0 (1.6-8.9) K/mcL BMP 06/27/17 04:50 Sodium 137 Potassium 3.7 Chloride 107 Carbon Dioxide 24 BUN 15 Creatinine 0.68 Glucose 96 Calcium 9.2 Cardiac Enzymes 06/26/17 Range/Units 12:57 Troponin I < 0.03 (< 0.04) ng/mL Liver Function 06/27/17 Range/Units 04:50 Total Bilirubin 0.5 (0.3-1.0) mg/dL AST 22 (13-39) Units/L ALT 17 (7-52) Units/L Alkaline Phosphatase 46 (34-104) Units/L Albumin 3.8 (3.5-5.7) g/dL - ABG Interpretation ABG results: PT/INR, D-dimer PT 10.9 Seconds (9.4-12.1) 06/27/17 04:50 Consult Discharge Plan - Plan Referrals: Janice Carpenter, FURNITURE REPAIRER [Primary Care Provider] - 07/03/17 11:00 am () <Juan Jose Covington - Last Filed: 06/27/17 17:20> Date of Encounter: 06/27/17 - Assessment and plan (1) Hypertensive emergency Current Visit: Yes Status: Resolved (2) Hypertension Current Visit: Yes Status: Chronic Qualifiers: Hypertension type: essential hypertension Qualified Code(s): I10 - Essential (primary) hypertension (3) Congestive heart failure Current Visit: Yes Status: Acute Qualifiers: Heart failure type: diastolic Heart failure chronicity: acute Qualified Code(s): I50.31 - Acute diastolic (congestive) heart failure (4) LBBB (left bundle branch block) Current Visit: Yes Status: Acute - Time Spent With Patient My time was 37min - Constitutional Vitals: Temp Pulse Resp BP Pulse Ox 98.1 F 89 18 152/20 95 06/27/17 16:33 06/27/17 16:33 06/27/17 16:33 06/27/17 16:33 06/27/17 16:33 Internal Medicine: Result - Labs CBC & Chem 7: 06/27/17 04:50 06/27/17 04:50 Labs: Short CBC 06/27/17 Range/Units 04:50 WBC 4.5 (4.3-11.1) K/mcL Hgb 14.2 (11.5-15.4) g/dL Hct 41.3 (35.3-44.9) % Plt Count 233 (140-400) K/mcL Neutrophils # 2.0 (1.6-8.9) K/mcL BMP 06/27/17 04:50 Sodium 137 Potassium 3.7 Chloride 107 Carbon Dioxide 24 BUN 15 Creatinine 0.68 Glucose 96 Calcium 9.2 Liver Function 06/27/17 Range/Units 04:50 Total Bilirubin 0.5 (0.3-1.0) mg/dL AST 22 (13-39) Units/L ALT 17 (7-52) Units/L Alkaline Phosphatase 46 (34-104) Units/L Albumin 3.8 (3.5-5.7) g/dL - ABG Interpretation ABG results: PT/INR, D-dimer PT 10.9 Seconds (9.4-12.1) 06/27/17 04:50 - Attending Attestation I examined this patient and my medical decision-making was reviewed with the Resident Physician on 06/27/17. I agree with the documented findings, disposition and treatment plan as described except to the extent set forth below. Ms Pham is currently admitted for hypertensive emergency. She is to have cardiac cath today. She remains moderate to high risk due to potential for worsening clinical status. Ms Pham is awaiting cardiac cath. No CP or SOB at this time. No fever or chills. BP has been slowly decreasing. No headache Exam Alert. Comfortable Mucus membranes dry Heart reg No wheeze I/P 1. HTN emergency 2. HTN 3. LBBB Further diagnoses and plan as above.
--- NOTE | 2017-06-27 10:24 | Event Note ---
Date of Encounter: 06/27/17 Time of Encounter: 10:22 - Cardiology Event Note Echo resulted--EF 45-50%, atypical septal motion consistent with BBB. Mild cLVH. LBBB also new compared to prior EKG in 2004. Given CMP and LBBB, recommend LHC to evaluate for ischemia. R/B/A discussed. Pt agreeable to proceed with LHC today.
[2017-06-27] MEDS ORDERED: 0.9 % Sodium Chloride 1,000 ML ONE ×2 (14:24→15:03)
[2017-06-27] MEDS ORDERED: *HR* Heparin 10,000 UNIT/10 ML VIAL ONE (14:24)
[2017-06-27] MEDS ORDERED: Heparin 1,000 UNITS/500 mL 500 ML ONE (14:24)
[2017-06-27] MEDS ORDERED: Nitroglycerin 1,000 MCG/10 ML VIAL IV ONE (14:25)
[2017-06-27] MEDS ORDERED: ISOVUE-370 200 ML INFUS..BTL IV ONE (14:25)
[2017-06-27] MEDS ORDERED: *HR* FentaNYL (PF) 100 MCG/2 ML VIAL ONE (15:03)
[2017-06-27] MEDS ORDERED: *HR* Midazolam HCl 2 MG/2 ML VIAL ONE (15:03)
[2017-06-27] MEDS ORDERED: *HR* Labetalol 100 MG/20 ML MDV ONE (15:33)
--- NOTE | 2017-06-27 16:00 | Invasive Diagnostic Lab Proc ---
Name: Heidi Pham Date of Study: 06/27/2017 Date: 1975 Ht: 66.0in Medical Record#: [id number] Age: 42 Wt: 198.42lb Gender: Female BSA: 1.99 Order #: [id number] BMI: 32.04 Physicians Procedure Physician: Reji Samuels MD Referring MD: Referring MD: Staff Name Position Time In Erlin Martin RT (R) Monitor 02:51 PM Danny Velázquez RN Conservation Educator 02:51 PM Amish Solitario RN Scrub 02:52 PM Indications Indication Cardiomyopathy Procedures Performed Procedure AORTOGRAPHY, ABDOMINAL S&I L HRT ARTERY/VENTRICLE ANGIO Pre-Procedure Checklist Informed consent is complete signed and on chart. H&P is on chart. ID band is on and ID verified with patient. Patient NPO for procedure The procedure was described for the patient and questions were answered. Blood Pressure: 155/128 ECG is on chart. Rhythm: LBBB Plan of Care Patient will tolerate the procedure without complications. Adequate level of comfort will be maintained. Hemodynamics will remain stable Patient will recover from procedure without complications. Respiratory function will be maintained. Cardiac rhythm will remain stable. Patient temperature will be maintained. Patient and/or family have verbalized understanding of the procedure. Patient Education Chief Complaint/Reason for Test: Cardiac Cath Developmental Category: Adult (18-64 years) Developmentally Appropriate for Age: Yes Learning Barriers: None Education Needs: Procedure Education Method: Verbal Information Taught: Cardiac Cath Educational Evaluation: Able to repeat information Note: renal angiogram additional Intravenous Access Time IV Size Location DC'd Fluid/Drip Rate Units RN 02:50 PM 20g 1 05/08" Patent On Arrival Rt Antecubital 0.9NaCl 25 ml/hr Danny Velázquez RN Allergies No Known Allergies Vital Signs Time BP (mmHg) HR (bpm) O2 Sat. RR (bpm) LOC 02:51 PM 155 / 128 78 94 % 19 5 = Fully awake and oriented or at pre-proc level 02:51 PM / % 5 = Fully awake and oriented or at pre-proc level 02:51 PM / % 5 = Fully awake and oriented or at pre-proc level 03:06 PM / % 4 = Oriented but drowsy 03:21 PM / % 4 = Oriented but drowsy 03:02 PM 183 / 128 96 99 % 17 03:03 PM 181 / 118 67 99 % 19 03:08 PM 179 / 123 88 100 % 14 03:13 PM 161 / 115 92 98 % 33 03:18 PM 160 / 117 90 100 % 17 03:23 PM 167 / 99 94 99 % 20 03:28 PM 158 / 112 90 98 % 18 03:33 PM 164 / 121 97 98 % 21 03:38 PM 151 / 105 88 97 % 15 03:43 PM 152 / 109 87 98 % 17 03:36 PM / % 5 = Fully awake and oriented or at pre-proc level Procedural Medications Time Medication Dose Units Method Given By 02:57 PM Oxygen 2 L/min nasal cannula Danny Velázquez RN 03:05 PM Versed 1 mg Intravenous Danny Velázquez RN 03:05 PM Fentanyl 50 mcg Intravenous Danny Velázquez RN 03:17 PM Lidocaine 2% 10 ml Subcutaneous Reji Samuels MD 03:21 PM Lidocaine 2% 10 ml Subcutaneous Reji Samuels MD 03:22 PM Versed 1 mg Intravenous Danny Velázquez RN 03:22 PM Fentanyl 50 mcg Intravenous Danny Velázquez RN 03:26 PM Lidocaine 2% 10 ml Subcutaneous Reji Samuels MD 03:34 PM Labetolol 10 mg Intravenous Danny Velázquez RN ASA Classification: CLASS II- Mild systemic disease (i.e. well-controlled diabetes, hypertension, asthma, cigarette smoking) Shelli Score Preprocedure Postprocedure Activity 2- Moves 4 extremities sustained head lift Activity Circulation 2- SBP +/= 20 points of pre-anesthetic level Circulation Consciousness 2- Awake and alert oriented x 3 Consciousness O2 Saturation 2- Able to maintain O2 satruation of 92% on room air O2 Saturation Respiratory 2- Able to deep breathe and cough well Respiratory Total Score 10 Total Score Contrast Agent: Isovue Diagnostic Contrast: 75 ml Total Contrast: 75 ml Fluoro Dose: 431 mGy Procedure Log Time Note Enter By 02:50 PM CathStat 02:51 PM Pt arrived to dental laboratory supervisor 1 at 14:51 goldie 02:51 PM Patient charges- Angio tray pack, Navilyst 3mm J, Pulse Oximetry and ACIST tubing and transducer [email or web address] 02:51 PM Time: 14:51 Patient comfortable and pain free: Yes [email or web address] 02:51 PM Time: 14:51LOC: 5 = Fully awake and oriented or at pre-proc [facility] Case Delayed No [email or web address] 02:51 PM Erlin Martin RT (R) Position: Monitor [facility]: [facility] Danny Velázquez RN Position: Conservation Educator Time in: 14:51 [facility] 02[facility]52 PM Amish Solitario RN Position: Scrub Time in: 14: [facility] :57 PM Physician arrived 14: [facility] Meet and greet completed [facility] Sign in performed according to hospital policy. [facility] 02:57 PM Procedure start 14:57 [facility] ASA Class CLASS II- Mild systemic disease (i.e. well-controlled diabetes, hypertension, asthma, cigarette smoking) [facility] :57 PM Time: 14:57 Oxygen on at 2 L/min per nasal cannula by Danny Velázquez RN [facility] PM Recorded ECG: HR=94 Condition=Condition 1 03:01 PM Vitals capture started with the following parameters, Patient=Adult, Interval=5 min, Initial Wgvhoyha=266 mmHg, Deflation Rate=5 mmHg, Cuff placed on Right Arm 03:01 PM Hair removed from procedure site in procedure lab using clippers. Bilateral groin prepped with Chloraprep by Amish Solitario RN, then patient was draped. Skin intact. [facility] 03[facility] PM HR=96 bpm, VGRD=660/128 mmhg, SpO2=99.0 %, Resp=17 B/min 03:02 PM Vitals capture stopped. 03:02 PM Vitals capture started with the following parameters, Patient=Adult, Interval=5 min, Initial Lukafbvm=339 mmHg, Deflation Rate=5 mmHg, Cuff placed on Right Arm 03:02 PM Recorded ECG: HR=81 Condition=Condition 1 03:03 PM HR=67 bpm, SCWT=089/118 mmhg, SpO2=99.0 %, Resp=19 B/min 03:05 PM Time: 15:05 Versed 1 mg Intravenous Given by Danny Velázquez RN 03:05 PM Time: 15:05 Fentanyl 50 mcg Intravenous Given by Danny Velázquez RN 03:06 PM Time: 14:51 Patient comfortable and pain free: Yes goldie 03:06 PM Time: 14:51LOC: 5 = Fully awake and oriented or at pre-proc level [facility] 03[facility] PM HR=88 bpm, VFSJ=666/123 mmhg, RqY7=914.0 %, Resp=14 B/min 03:11 PM Pressure channel 1 zero failed. 03:11 PM Pressure channel 1 zero failed. 03:11 PM Pressure channel 1 zeroed. 03:13 PM HR=92 bpm, JJCE=102/115 mmhg, SpO2=98.0 %, Resp=33 B/min 03:16 PM Time out performed according to hospital policy [facility] PM Time: 15:17 10 ml Lidocaine 2% to right groin Subcutaneous Given by MD goldie Palomo 03:18 PM HR=90 bpm, TTIR=180/117 mmhg, EqI0=153.0 %, Resp=17 B/min 03:19 PM Micro-Introducer Kit utilized for sheath placement [facility] 03[facility] PM Unsuccessful access attempt # 1 into the right Femoral artery. Manual pressure applied to achieve hemostasis.. goldie 03:20 PM Unsuccessful access attempt # 2 into the right Femoral artery. Manual pressure applied to achieve hemostasis.. goldie 03:21 PM Time: 15:06 Patient comfortable and pain free: Yes goldie 03:21 PM Time: 15:06LOC: 4 = Oriented but drowsy jcashleigh 03:21 PM Time: 15:21 10 ml Lidocaine 2% to right groin Subcutaneous Given by MD goldie Palomo 03:22 PM Time: 15:22 Versed 1 mg Intravenous Given by Danny Velázquez RN 03:22 PM Time: 15:22 Fentanyl 50 mcg Intravenous Given by Danny Velázquez RN 03:23 PM HR=94 bpm, UBYT=400/99 mmhg, SpO2=99.0 %, Resp=20 B/min 03:23 PM Unsuccessful access attempt # 3 into the right Femoral artery. Manual pressure applied to achieve hemostasis.. goldie 03:26 PM Time: 15:26 10 ml Lidocaine 2% to right groin Subcutaneous Given by MD goldie Palomo 03:27 PM Access obtained by percutaneous puncture. 6Fr 10cm Terumo [place] sheath placed in right Femoral artery. [id number] jcallihan 03:28 PM HR=90 bpm, LFWR=862/112 mmhg, SpO2=98.0 %, Resp=18 B/min 03:28 PM Bolus angiogram of right Femoral complete: 4 ml/sec for a total of 7 mls jcallihan 03:28 PM 0.035 145cm Navilyst 3mmJ wire [id number] jcallihan 03:28 PM 5Fr FR 4 catheter inserted over the wire DN jcallihan 03:28 PM RCA angiography performed in multiple views. jcallihan 03:29 PM Recorded Pressure: Ao, HR=84, Condition=Condition 1 (Aorta) Ao 180/131/154 03:30 PM Catheter removed jcallihan 03:30 PM Coronary Dominance: right jcallihan 03:30 PM LCA angiography performed in multiple views. jcallihan 03:31 PM Recorded Pressure: Ao, HR=91, Condition=Condition 1 (Aorta) Ao 169/135/150 03:33 PM HR=97 bpm, SFVJ=589/121 mmhg, SpO2=98.0 %, Resp=21 B/min 03:33 PM Catheter removed jcallihan 03:34 PM 5Fr Pigtail catheter inserted over the wire [facility] jcallihan 03:34 PM Time: 15:34 Labetolol 10 mg Intravenous Given by Danny Velázquez RN jcallmarlo 03:34 PM Catheter selectively placed in left ventricle jcallihan 03:34 PM Recorded Pressure: LV, HR=98, Condition=Condition 1 (Left Ventricle) LV 159/38/39 03:35 PM Recorded Pressure: LV, Ao, HR=97, Condition=Condition 1 (Left Ventricle) LV 166/43/45, (Aorta) Ao 164/73/116 03:35 PM Catheter removed jcallihan 03:36 PM Time: 15:21LOC: 4 = Oriented but drowsy jcallihan 03:36 PM Time: 15:21 Patient comfortable and pain free: Yes jcallihan 03:37 PM Left renal and Right renal angiography performed in multiple views jcallihan 03:38 PM HR=88 bpm, TOTB=488/105 mmhg, SpO2=97.0 %, Resp=15 B/min 03:41 PM Catheter removed jcallihan 03:43 PM HR=87 bpm, CNWQ=969/109 mmhg, SpO2=98.0 %, Resp=17 B/min 03:43 PM Arterial sheath pulled, Mynx closure device used and was Successful S/N.[id number] jcallihan 03:43 PM Procedure completed at 15:43 jcallihan 03:44 PM Sign out completed: Radiation Dose 431.33 mGy Fluoro Time: 6.2 Isovue 370 - 200ml contrast 75 ml given by Reji Samuels MD. Complications: NoneCardiac Rehab Consult needed: NoConfirmed administered medications: Yes jcallihan 03:45 PM Isovue 370 - 200ml,1 Bottle(s) used. jcallihan 03:45 PM Estimated Blood Loss: less than 20cc jcallihan 03:45 PM Post ECG LBBB jcallihan 03:45 PM Post Blood Pressure 152/109 jcallihan 03:47 PM Information taught Cardiac Cath and Mynx jcallihan 03:47 PM Education needs Procedure, Plan of Care, and Disease Process jcallihan 03:47 PM Learning barriers :Sedated jcallihan 03:47 PM Education Methods Verbal jcallihan 03:47 PM Education evaluation Needs further instruction jcallihan 03:47 PM Site status No bleeding/hematoma - Rt Groin as reported by Amish Solitario RN at 15:47 jcallihan 03:47 PM Opsite applied jcallihan 03:47 PM Delay to floor No jcallihan 03:47 PM Complications: None jcallihan 03:47 PM Fluoro Time: 6.2 jcallihan 03:47 PM Isovue 370 - 200ml contrast 75 ml given by Reji Samuels MD. jcallihan 03:47 PM Radiation Dose 431.33 mGy jcallihan 03:48 PM Vitals capture stopped. 03:48 PM Family placed in consult room. jcallihan 03:49 PM 15:49 Post Pulses Bilateral DP & PT 2+ jcallihan 03:51 PM Report given to rickie DONOHUE Pt taken to 2N Room #3. 15:50 jcallihan 03:51 PM Time: 15:36 Patient comfortable and pain free: Yes jcallihan 03:51 PM Time: 15:36LOC: 5 = Fully awake and oriented or at pre-proc level goldie 03:53 PM Patient out of room: 15:53 goldie Complications Complication None None Hemodynamics Pressures Site Systolic/A Wave Diastolic/V Wave Mean AO 180 131 154 AO 169 135 150 LV 159 38 39 LV 166 43 45 AO 164 73 116 Post Procedure Information Blood Pressure: 152/109 mmHg Rhythm: LBBB Post procedural instructions were given Closure Device Time Device Success/Fail 06/27/2017 3:43:00 PM MynxGrip Successful Site Checks Time Location Status Staff Sheath In? Note 03:47 PM Rt Groin No bleeding/hematoma Amish Solitario RN Pulses Time Site Pre-Procedure Post-Procedure Note 06/27/2017 2:50:00 PM Bilateral DP & PT 2+ 06/27/2017 2:50:00 PM Bilateral radial 2+ 3:49:00 PM Bilateral DP & PT 2+ Updated by Danny Velázquez RN on 06/27/2017 3:53:48 PM electronically signed on 06/27/2017 3:54:07 PM with status of Final
--- NOTE | 2017-06-27 16:33 | Pre-Sedation Evaluation ---
Pre-sedation evaluation - Pre-sedation checklist Date of procedure: 06/27/17 Procedure: LHC Recent Vitals: Last Vital Signs Temp 98.3 F 06/27/17 16:15 Pulse 86 06/27/17 16:15 Resp 18 06/27/17 16:15 BP 155/112 06/27/17 16:15 Pulse Ox 93 06/27/17 16:15 ASA Classification *see protocol: CLASS II-Mild systemic disease Plan of Care: Pt appropriate candidate for procedure/moderate/conscious sedation
[2017-06-27] MEDS: niCARdipine 40 MG/200 ML MLS IVC SCH ×5 (22:11→22:22)
[2017-06-28] MEDS: *HR* Heparin 5,000 UNIT/ML VIAL SQ SCH (05:05)
[2017-06-28] MEDS: Spironolactone 25 MG TABLET PO SCH (07:38)
[2017-06-28] MEDS: amLODIPine 5 MG TABLET PO SCH (07:38)
[2017-06-28 11:13] VITALS: BP 157/107
--- NOTE | 2017-06-28 11:21 | Cardiology Progress Note ---
Date of Encounter: 06/28/17 Time of Encounter: 11:15 Assessment and Plan (1) Hypertension Current Visit: Yes Status: Chronic Per Cardiology: Previous noncompliance with medications at home of Norvasc and enalapril. Currently on Aldactone and Norvasc with systolic blood pressures in the 150s to 160s. Had a.m. meds. Patient with mild cardiopathy with EF 45-50%. Discussed and reviewed with Dr. Suzan Ogden, will discontinue Aldactone. We'll add low -dose beta jolene and KATARZYNA inhibitor. Patient encouraged to keep her heart rate and blood pressure log and bring a follow-up appointment in a few weeks. We'll consider discontinuation of Norvasc at that time and further up titration of KATARZYNA inhibitor and beta jolene. Patient and family verbalized understanding and agreed with plan. Qualifiers: Hypertension type: essential hypertension Qualified Code(s): I10 - Essential (primary) hypertension (2) LVH (left ventricular hypertrophy) due to hypertensive disease Current Visit: Yes Status: Acute Per Cardiology: Euvolemic on exam. Again, adding KATARZYNA inhibitor and beta jolene. Catheterization reviewed and discussed with Dr. Suzan Ogden, normal coronary angiogram and no renal artery stenosis noted. Education provided regarding postprocedure care. All questions answered. Cardiology will sign off, reconsult as needed, follow-up arranged. Qualifiers: Heart failure presence: with heart failure Qualified Code(s): I11.0 - Hypertensive heart disease with heart failure (3) LBBB (left bundle branch block) Current Visit: Yes Status: Chronic Per Cardiology: Now with known history of left bundle branch block. Discussion w patient/family: The assessment and plan as outlined above was discussed with the patient and/or family members who expressed understanding and agreement. All questions were answered. Thank you for involving us in the care of your patient. Please call with any questions. Subjective Principal diagnosis: HTN, LBBB, Mild CMP Interval history: Patient denies any chest pain, shortness of breath, palpitations. Denies any concerns from her right groin site. Reports previous noncompliance with medications at home for hypertension and had been on amlodipine 10 mg by mouth daily and benazepril 10 mg by mouth daily. Objective Vital Signs, Last 4 Hours Temp Pulse Resp BP Pulse Ox 06/28/17 11:10 98.3 F 86 16 157/107 97 06/28/17 07:51 97.9 F 83 16 162/108 95 06/28/17 07:39 77 General: Conversant, No Apparent Distress HEENT: Atraumatic, Normocephaly, Mucus Membranes Moist Neck: No JVD, Normal carotid pulses Cardiac: Reg Rate and Rhythm, Normal S1 and S2, No Murmur Lungs: Normal Breath Sounds, No Wheeze, Rales, Rhonchi Neuro: Alert and responsive, No focal deficits noted Abdomen: Soft, Non-Tender Skin: No rashes noted on visualized skin, Other (Right groin site dry and intact , no hematoma, no bleeding, no ecchymosis, right PT and DP pulses 2+ palpable) Musculoskeletal: No Chest Wall Tenderness Extremities: No Clubbing, No Cyanosis, No Edema, Normal Pulses Results 06/27/17 04:50 06/27/17 04:50 Laboratory Tests 06/25/17 06/25/17 06/26/17 23:49 23:49 02:31 Creatinine Est GFR (Non-Af Amer) Troponin I < 0.03 B-Natriuretic Peptide 653 H LDL Cholesterol, Calc TSH Serum , Qual Negative 06/26/17 06/26/17 06/26/17 05:45 05:45 12:57 Creatinine Est GFR (Non-Af Amer) Troponin I < 0.03 < 0.03 B-Natriuretic Peptide LDL Cholesterol, Calc TSH 1.665 Serum , Qual 06/27/17 04:50 Creatinine 0.68 Est GFR (Non-Af Amer) > 60 Troponin I B-Natriuretic Peptide LDL Cholesterol, Calc 111 H TSH Serum , Qual ITS Impressions Chest X-Ray 06/25/17 23:21 IMPRESSION: Bilateral perihilar infiltrates, pneumonia or related to cardiogenic pulmonary edema with Tanya B-lines at the lung bases. No significant pleural fluid. D/ / Rasheed Scherer MD / Rasheed Scherer MD Interpreting Provider: Rasheed Scherer MD Chest CTA 06/26/17 01:59 IMPRESSION: 1. No definite scan evidence for pulmonary embolus. 2. Pleural effusions and pulmonary edema. D/ / Devyn Bryan MD / Devyn Bryan MD Interpreting Provider: Devyn Bryan MD Echocardiogram 06/26/17 04:48 Impressions: Technically sub-optimal due to poor echocardiographic windows. LVEF 45-50%. Not all LV segments were well visualized, but overall LVEF appeared low normal to mildly reduced. Atypical septal motion consistent with bundle branch block. Mild concentric left ventricular hypertrophy. Indeterminate diastolic function. Normal right ventricular structure and function. Unable to estimate RVSP due to lack of TR jet. No significant valvular dysfunction. Future studies should be completed with contrast enhancement. Findings: Study Quality * Technically sub-optimal due to poor echocardiographic windows. ECG Findings * Sinus rhythm with BBB. Left Ventricle * LVEF 45-50%. Not all LV segments were well visualized, but overall LVEF appeared low normal to mildly reduced. * Normal LV chamber size. * Atypical septal motion consistent with bundle branch block. * Mild concentric left ventricular hypertrophy. * Indeterminate diastolic function. Right Ventricle * Normal right ventricular structure and function. Left Atrium * Mild to moderately dilated left atrium. Right Atrium * Right atrium is not well visualized. Interatrial Septum * Interatrial septum not well evaluated. Aortic Valve * Aortic valve not well visualized. * No aortic stenosis. * No aortic regurgitation. Mitral Valve * Normal mitral valve structure and function. * No mitral stenosis. * Trace mitral regurgitation. Tricuspid Valve * Normal tricuspid valve structure and function. * No tricuspid regurgitation. * Unable to estimate RVSP due to lack of TR jet. Pulmonic Valve * Pulmonic valve is not well visualized. * No pulmonic regurgitation. Aorta * Normally sized aortic root. Pericardium * The pericardium appears normal. Active Medications Acetaminophen (Tylenol) 650 mg PO Q6HR PRN PRN Reason: Mild Pain/Fever Stop: 12/26/17 04:49 Amlodipine Besylate (Norvasc) 5 mg PO DAILY [facility] PRN Reason: Protocol Stop: 12/26/17 09:31 Last Admin: 06/28/17 07:38 Dose: 5 mg Heparin Sodium (Porcine) (Heparin) 5,000 unit SQ Q8HCO [facility] Stop: 12/26/17 06:01 Last Admin: 06/28/17 05:05 Dose: 5,000 unit Nicardipine HCl (Cardene Premix 40mg/200ml) 40 mg in 200 mls @ 25 mls/hr IVC .Q8H [facility]; 5 MG/HR PRN Reason: Protocol Stop: 12/26/17 04:16 Last Admin: 06/27/17 22:22 Dose: Not Given Naloxone HCl (Narcan) 0.4 mg IVP Q2MIN PRN PRN Reason: SEE COMMENTS Stop: 12/26/17 04:49 Spironolactone (Aldactone) 25 mg PO DAILY [facility] Stop: 12/26/17 10:31 Last Admin: 06/28/17 07:38 Dose: 25 mg Tramadol HCl (Ultram) 50 mg PO Q6HR PRN PRN Reason: Moderate Pain Stop: 12/26/17 04:49 - Imaging and Cardiology Echo: report reviewed Cardiac cath: report reviewed - EKG Interpretation EKG results cardiology: other Consult Discharge Plan - Plan Additional Instructions: -Please continue current medication to help control elevated blood pressure. Referrals: Janice Carpenter, CLIN NURSE SPEC [Primary Care Provider] - 07/03/17 11:00 am ()
--- NOTE | 2017-06-28 12:05 | Discharge Summary ---
<Marvin Vizcarra - Last Filed: 06/28/17 12:44> - NOTES TO OUTPATIENT PROVIDER Notes to Outpatient Provider: Chronic HTN, with secondary LVH; LBBB and LV strain seen on EKG. Mild CHF on echo. Orders not resulted at time of discharge: Pending orders 06/27/17 10:24 CL Cardiac Catheterization [CL] Routine Date of Encounter: 06/28/17 Time of Encounter: 09:10 - Discharge Diagnosis (1) Hypertensive emergency Priority: Primary Status: Resolved (2) Congestive heart failure Priority: Secondary Status: Acute Qualifiers: Heart failure type: diastolic Heart failure chronicity: acute Qualified Code(s): I50.31 - Acute diastolic (congestive) heart failure (3) LBBB (left bundle branch block) Priority: Secondary Status: Chronic (4) LVH (left ventricular hypertrophy) due to hypertensive disease Priority: Secondary Status: Acute Qualifiers: Heart failure presence: with heart failure Qualified Code(s): I11.0 - Hypertensive heart disease with heart failure (5) DVT prophylaxis Priority: Secondary Status: Acute Hospital course: Ms. Pham is a 42 year old female, admitted for HTN emergency with BP of 217/ 149 at arrival. Patient presented with 1 days hx of chest tightness, heaviness, dyspnea, dyspnea on exertion, and orthopnea. Clinically diagnosed with acute congestive heart failure. Initially received SL nitroglycerin, patient had episode of presyncope with SBP in 120s. Patient was placed on nicardipine drip initially, switched to PO norvasc with SBP in 150-160s during stay, patinet also started on spironolacton and oxygen. Chest x-ray confirmed CHF findings. CT chest showed pleural effusion and enlarge myocardium. EKG with new LBBB and LVH with LV strain. Echo showing LVEF 45-50%; Atypical septal motion consistent with bundle branch block; Mild concentric left ventricular hypertrophy. Patient agreed to ischemic workup, [facility] completed with normal coronary angiography. Renal artery ultrasound was normal without stenosis. Patient admits to long standing hx of HTN, discontinued initial medication therapy as it made her feel fatigued. Notes resolution of all symptoms currently. At discharge cardiology recommended discontinuation of aldactone, continue norvasc with the addition of low dose coreg and lisinopril. Patient agreed to plan and states she is comfortable with discharge home today. Discharge discussed with: patient, family - Time Spent with Patient Total time spent providing and/or coordinating discharge services: Greater than 30 minutes (45mins) - Discharge Medications Prescriptions: amLODIPine [Norvasc] 5 mg PO DAILY #30 tablet Blood Pressure Test Kit-Medium [Blood Pressure Cuff Monitor] 1 each MC 1-2XD #1 kit Carvedilol [Coreg] 3.125 mg PO BIDWM #60 tablet Lisinopril [Zestril] 2.5 mg PO DAILY #30 tablet Home Medications: Blood Pressure Test Kit-Medium [Blood Pressure Cuff Monitor] 1 each MC 1-2XD #1 kit 06/28/17 [Rx] Carvedilol [Coreg] 3.125 mg PO BIDWM #60 tablet 06/28/17 [Rx] Lisinopril [Zestril] 2.5 mg PO DAILY #30 tablet 06/28/17 [Rx] amLODIPine [Norvasc] 5 mg PO DAILY #30 tablet 06/28/17 [Rx] Allergies/Adverse Reactions: 3 Allergy/AdvReac Type Severity Reaction Status Date / Time No Known Allergies Allergy Verified 06/25/17 22:14 Date of admission: 06/26/17 04:50 Primary care physician: Janice Carpenter CNP Consults: Seen and evaluated by cardiology during stay. Discharging clinician: Juan Jose Covington Anticipated date of discharge: 06/28/17 - Constitutional Vitals: Temp Pulse Resp BP Pulse Ox 98.3 F 86 16 157/107 97 06/28/17 11:10 06/28/17 11:10 06/28/17 11:10 06/28/17 11:10 06/28/17 11:10 General appearance: Present: cooperative, A&O X 3, pleasant, no acute distress, answers questions appropriately - Head Head exam: Present: atraumatic, normocephalic - Eye Eye exam: Present: EOMI, conjuntiva pink, sclera anicteric - Neck Neck exam general surgery: Present: full ROM, supple, trachea midline - Respiratory Respiratory exam: Present: CTAB. Absent: accessory muscle use, rales, rhonchi, wheezes - Cardiovascular Cardiovascular exam: Present: RRR, +S1, +S2. Absent: diastolic murmur, gallop, rubs, systolic murmur - GI/Abdominal GI/Abdominal exam: Present: soft, no peritoneal signs. Absent: distended, tenderness - Extremities Exam Extremities exam: Present: warm. Absent: calf tenderness, cyanotic, pedal edema - Neurological Exam Neurological exam: Present: oriented X3, no focal deficits. Absent: facial droop, speech deficit - Skin Skin exam: Present: dry, intact - Patient Status Disposition: Home, Self-Care Condition: Good Functional capacity at discharge: independent ambulation Overall status at discharge: patient is back to baseline - Discharge Instructions Instructions: Lisinopril (By mouth), Amlodipine (By mouth), Carvedilol (By mouth) Follow Up With: Janice Carpenter CNP [Primary Care Provider] - 07/03/17 11:00 am () [facility] [Provider Group] Additional Instructions: -Prescription sent to pharmacy, please continue current medications. -Cardiology recommends you keep heart rate and blood pressure log and bring to follow-up appointment in a few weeks. -Follow up with PCP (primary care provider), Pauline, on July 03. -If you have new or worsening symptoms please return or seek medical help. Follow-up appointments: If there is not an appointment listed below, please call your physician and schedule a follow-up appointment. If you have congestive heart failure and your symptoms return, make an appointment with your physician. Medication List: Carry an up to date list of medications you are taking at all time. We have given you an updated medication list including any new medications that you have been prescribed. Please provide that list to your primary provider Symptoms: If your condition changes or you experience any of the following symptoms, notify your physician immediately: Unusual or worsening pain, fever, persistent nausea and vomiting, bleeding, increase in swelling (especially in your legs), sudden weight gain, extreme dizziness, chest pain, increased drainage or redness from a wound or incision. Go to the emergency department if you experience a problem with breathing. Weights: If you have a history of swelling or shortness of breath, weigh yourself daily and notify your physician if you have a weight gain of two or more pounds in one day or 5 or more pounds in a week. If you experience any of the warning signs for stroke: Sudden numbness or weakness of the face, arm or leg; especially on one side of the body, sudden confusion, trouble speaking or understanding, sudden trouble seeing in one or both eyes, sudden trouble walking, dizziness, loss of balance or coordination, sudden sever headache with no cause; Call 911 or go to the emergency room. Stroke is a medical emergency. Some risk factors for stroke: Age, cigarette smoking, diabetes, excessive alcohol consumption, family history , high blood pressure, overweight, physical inactivity, prior stroke, heart attack, diagnosis of carotid artery stenosis or other artery disease. If you smoke, STOP: Smoking or tobacco use significantly increases your risk of heart and lung disease. Your chance of disease greatly increases if you continue to smoke. For more information, call the [employer] quit line for smoking cessation 2 QUIT-NOW ( )- Please continue current medication to help control elevated blood pressure. - Diet and Activity Activity: resume usual activities as tolerated Diet: advance to your usual diet <Juan Jose Covington - Last Filed: 06/28/17 16:52> Orders not resulted at time of discharge: Pending orders 06/27/17 10:24 CL Cardiac Catheterization [CL] Routine Date of Encounter: 06/28/17 - Discharge Diagnosis (1) Hypertensive emergency Status: Resolved (2) Hypertension Priority: Primary Status: Chronic Qualifiers: Hypertension type: essential hypertension Qualified Code(s): I10 - Essential (primary) hypertension (3) Congestive heart failure Status: Resolved Qualifiers: Heart failure type: diastolic Heart failure chronicity: acute Qualified Code(s): I50.31 - Acute diastolic (congestive) heart failure (4) LBBB (left bundle branch block) Status: Chronic Hospital course: Ms. Pham is a 42 year old female - Time Spent with Patient Total time spent providing and/or coordinating discharge services: 25min Date of admission: 06/26/17 04:50 Primary care physician: Janice Carpenter CNP - Constitutional Vitals: Temp Pulse Resp BP Pulse Ox 98.3 F 86 16 157/107 97 06/28/17 11:10 06/28/17 11:10 06/28/17 11:10 06/28/17 11:10 06/28/17 11:10 - Attending Attestation I examined this patient and my medical decision-making was reviewed with the Resident Physician on 06/28/17. I agree with the documented findings, disposition and treatment plan as described except to the extent set forth below. Ms Pham has been admitted for acute hypertensive emergency. BP is somewhat better. She had cardiac cath yesterday negative for ischemia. She is feeling better and is ready for discharge home. Exam alert Comfortable Mucus membranes dry Heart not tachy No wheeze Plan D/C home today
== END 2017-06-28 13:34 | disposition home or self-care (01) | DRG 286 ==
LOC: 2NNU 22:13 → EMEROO 22:13 → SUATTDRO 06-26 04:50 → 2NNU 06-26 04:57
PROVIDERS: ADMIT Pediatrics; ATTEND Internal Medicine

== ENCOUNTER 2019-04-02 09:36 | Inpatient (IN) ==
[2019-04-02 10:05] LABS: Basophils % 0.4 %; Hematocrit 41.9 % (35.3-44.9); Hemoglobin 14.7 g/dL (11.5-15.4); Immature Granulocytes % 0.1 % (0-4); Lymphocytes # 1.3 K/mcL (0.6-4.6); Lymphocytes % 18.6 %; Mean Corpuscular HGB Conc 35.1 g/dL (31.6-35.5); Mean Corpuscular Hemoglobin 32.2 pg (28.0-33.3); Mean Corpuscular Volume 91.7 fL (83.0-100.0); Mean Platelet Volume 9.2 fL (9.4-12.4); Monocytes # 0.5 K/mcL (0.0-1.3); Monocytes % 7.3 %; Platelet Count 232 K/mcL (140-400); Red Blood Count 4.57 M/mcL (3.82-4.97); Red Cell Distribution Width 13.2 % (11.5-14.5); Segmented Neutrophils % 73.6 %; White Blood Count 6.7 K/mcL (4.3-11.1)
[2019-04-02 10:26] LABS: BUN/Creatinine Ratio 22 (6-26); Blood Urea Nitrogen 14 mg/dL (6-20); Calcium 9.5 mg/dL (8.6-10.3); Carbon Dioxide 21 mEq/L (23-29); Chloride 109 mEq/L (98-107); Glucose 98 mg/dL (70-105); Osmolality,Calculated 296 (280-300); Potassium 4.3 mEq/L (3.5-5.1); Sodium 143 mEq/L (136-145); Troponin I < 0.03 ng/mL (< 0.04); eGFR For African Americans > 60 (> 60); eGFR For Non-African Americans > 60 (> 60)
[2019-04-02 10:40] LABS: Thyroid Stimulating Hormone 2.759 mcIU/mL (0.340-5.600)
[2019-04-02 10:47] LABS: Bilirubin,Urine Small (Negative); Blood,Urine Negative (Negative); Clarity,Urine Cloudy (Clear); Color,Urine Dark Yellow (Yellow); Glucose,Urine (UA) Normal (Normal); Ketones,Urine Negative (Negative); Leukocyte Esterase,Urine Negative (Negative); Nitrite,Urine Negative (Negative); Protein,Urine 30 mg/dL (Neg-Trace); Specific Gravity,Urine > 1.030 (1.010-1.025); Urobilinogen,Urine Normal (Normal)
[2019-04-02 10:49] LABS: Bacteria,Urine Few per hpf (None-Few); Hyaline Casts,Urine None Seen per lpf (None-Few); RBC,Urine 0-3 per hpf (0-3); Squamous Epithelial Cell,Urine Many per lpf (None-Few); WBC,Urine 0-3 per hpf (0-3)
[2019-04-02] MEDS ORDERED: Isovue-370 500 ML BOTTLE IVP ONE (10:50)
[2019-04-02] MEDS ORDERED: Furosemide 40 MG/4 ML VIAL IVP ONE (13:07)
[2019-04-02] MEDS ORDERED: Nitroglycerin 25 MG/250 ML INFUS..BTL IVC SCH ×3 (13:15→16:38)
[2019-04-02] MEDS ORDERED: Naloxone 0.4 MG/ML INJ IVP PRN (14:15)
[2019-04-02] MEDS ORDERED: Perflutren Lipid Microsphere 1.3 ML in 0.9 % Sodium Chloride 8.7 ML IVP ONE (14:28)
[2019-04-02] MEDS ORDERED: *HR* LORazepam 2 MG/ML VIAL IVP PRN ×3 (16:40)
[2019-04-02 17:22] LABS: Amphetamine Screen,Urine Negative ng/mL (Cutoff=1000); Barbiturate Screen,Urine Negative ng/mL (Cutoff=200); Benzodiazepines Screen,Urine Negative ng/mL (Cutoff=200); Cannabinoid Screen,Urine Negative ng/mL (Cutoff = 50); Cocaine Screen,Urine Negative ng/mL (Cutoff= 300); Opiate Screen,Urine Negative ng/mL (Cutoff=300); Phencyclidine Screen,Urine Negative ng/mL (Cutoff=25)
[2019-04-02] MEDS ORDERED: Acetaminophen 325 MG TABLET PO ONE (20:35)
[2019-04-03 02:20] LABS: Basophils % 0.5 %; Hematocrit 40.1 % (35.3-44.9); Hemoglobin 13.5 g/dL (11.5-15.4); Immature Granulocytes % 0.2 % (0-4); Lymphocytes # 1.3 K/mcL (0.6-4.6); Lymphocytes % 22.7 %; Mean Corpuscular HGB Conc 33.7 g/dL (31.6-35.5); Mean Corpuscular Hemoglobin 31.5 pg (28.0-33.3); Mean Corpuscular Volume 93.5 fL (83.0-100.0); Mean Platelet Volume 9.1 fL (9.4-12.4); Monocytes # 0.5 K/mcL (0.0-1.3); Monocytes % 9.1 %; Neutrophils # 3.9 K/mcL (1.6-8.9); Platelet Count 201 K/mcL (140-400); Red Blood Count 4.29 M/mcL (3.82-4.97); Red Cell Distribution Width 13.1 % (11.5-14.5); Segmented Neutrophils % 67.5 %; White Blood Count 5.7 K/mcL (4.3-11.1)
[2019-04-03 02:40] LABS: BUN/Creatinine Ratio 22 (6-26); Blood Urea Nitrogen 14 mg/dL (6-20); Calcium 9.1 mg/dL (8.6-10.3); Carbon Dioxide 21 mEq/L (23-29); Chloride 103 mEq/L (98-107); Chol/HDL Ratio 2.8 (0-4.9); Cholesterol 168 mg/dL (< 200); Glucose 96 mg/dL (70-105); HDL Cholesterol 60 mg/dL (40-59); LDL Cholesterol,Calculated 91 mg/dL (0-99); Magnesium 1.7 mg/dL (1.6-2.6); Osmolality,Calculated 284 (280-300); Potassium 3.4 mEq/L (3.5-5.1); Sodium 137 mEq/L (136-145); Triglycerides 83 mg/dL (< 150); eGFR For African Americans > 60 (> 60); eGFR For Non-African Americans > 60 (> 60)
[2019-04-03] MEDS ORDERED: Ondansetron 4 MG/2 ML VIAL IVP ONE (05:04)
[2019-04-03 05:09] LABS: Alanine Aminotransferase 35 Units/L (7-52); Albumin 3.8 g/dL (3.5-5.7); Albumin/Globulin Ratio 1.7 (1.1-2.2); Alkaline Phosphatase 53 Units/L (34-104); Aspartate Amino Transferase 29 Units/L (13-39); Bilirubin,Direct 0.2 mg/dL (0.0-0.2); Bilirubin,Indirect 0.7 mg/dL (0.0-1.0); Bilirubin,Total 0.9 mg/dL (0.3-1.0); Globulin 2.2 g/dL (2.4-3.5)
[2019-04-03] MEDS ORDERED: Potassium Chloride Elixir 20 MEQ/15 ML UDC PO ONE (07:42)
[2019-04-03] MEDS ORDERED: Nitroglycerin 25 MG/250 ML INFUS..BTL IVC SCH (07:44)
[2019-04-03] MEDS: Folic Acid 1 MG TABLET PO SCH (09:17)
[2019-04-03] MEDS: Thiamine (B-1) 100 MG TABLET PO SCH (09:17)
[2019-04-03] MEDS: Furosemide 40 MG/4 ML VIAL IVP SCH (09:18)
[2019-04-03] MEDS: Vitamin B Complex/Vit C/Vit E 1 EACH TABLET PO SCH (09:18)
[2019-04-04 02:41] LABS: Hematocrit 40.9 % (35.3-44.9); Hemoglobin 13.9 g/dL (11.5-15.4); Mean Corpuscular Hemoglobin 31.5 pg (28.0-33.3); Mean Corpuscular Volume 92.7 fL (83.0-100.0); Mean Platelet Volume 9.2 fL (9.4-12.4); Platelet Count 221 K/mcL (140-400); Red Blood Count 4.41 M/mcL (3.82-4.97); Red Cell Distribution Width 13.1 % (11.5-14.5); White Blood Count 4.7 K/mcL (4.3-11.1)
[2019-04-04 03:03] LABS: BUN/Creatinine Ratio 26 (6-26); Blood Urea Nitrogen 22 mg/dL (6-20); Calcium 9.1 mg/dL (8.6-10.3); Carbon Dioxide 27 mEq/L (23-29); Chloride 104 mEq/L (98-107); Glucose 98 mg/dL (70-105); Osmolality,Calculated 287 (280-300); Sodium 137 mEq/L (136-145); eGFR For African Americans > 60 (> 60); eGFR For Non-African Americans > 60 (> 60)
[2019-04-04] MEDS: Furosemide 40 MG/4 ML VIAL IVP SCH ×2 (09:14→17:33)
[2019-04-04] MEDS: carvediloL 6.25 MG TABLET PO SCH ×2 (09:14→17:33)
[2019-04-04] MEDS: Folic Acid 1 MG TABLET PO SCH (09:15)
[2019-04-04] MEDS: Vitamin B Complex/Vit C/Vit E 1 EACH TABLET PO SCH (09:15)
[2019-04-04] MEDS: Thiamine (B-1) 100 MG TABLET PO SCH (09:16)
[2019-04-04] MEDS ORDERED: *HR* Metoprolol 5 MG/5 ML VIAL IVP PRN (14:42)
[2019-04-04] MEDS: Sacubitril/Valsartan 24/26 MG 1 TABLET PO SCH (20:02)
[2019-04-05 03:00] LABS: Hematocrit 42.6 % (35.3-44.9); Hemoglobin 14.8 g/dL (11.5-15.4); Mean Corpuscular HGB Conc 34.7 g/dL (31.6-35.5); Mean Corpuscular Hemoglobin 31.5 pg (28.0-33.3); Mean Corpuscular Volume 90.6 fL (83.0-100.0); Mean Platelet Volume 9.5 fL (9.4-12.4); Platelet Count 241 K/mcL (140-400); Red Cell Distribution Width 12.9 % (11.5-14.5); White Blood Count 6.2 K/mcL (4.3-11.1)
[2019-04-05 03:17] LABS: BUN/Creatinine Ratio 27 (6-26); Blood Urea Nitrogen 18 mg/dL (6-20); Calcium 9.3 mg/dL (8.6-10.3); Carbon Dioxide 25 mEq/L (23-29); Chloride 103 mEq/L (98-107); Glucose 93 mg/dL (70-105); Osmolality,Calculated 284 (280-300); Potassium 3.5 mEq/L (3.5-5.1); Sodium 136 mEq/L (136-145); eGFR For African Americans > 60 (> 60); eGFR For Non-African Americans > 60 (> 60)
[2019-04-05] MEDS: Thiamine (B-1) 100 MG TABLET PO SCH (08:42)
[2019-04-05] MEDS: Folic Acid 1 MG TABLET PO SCH (08:43)
[2019-04-05] MEDS: Vitamin B Complex/Vit C/Vit E 1 EACH TABLET PO SCH (08:43)
[2019-04-05] MEDS: Furosemide 40 MG/4 ML VIAL IVP SCH ×2 (08:43→17:28)
[2019-04-05] MEDS: carvediloL 6.25 MG TABLET PO SCH ×2 (08:43→17:29)
[2019-04-05] MEDS: Sacubitril/Valsartan 24/26 MG 1 TABLET PO SCH ×2 (08:43→21:42)
[2019-04-05] MEDS ORDERED: carvediloL 6.25 MG TABLET PO ONE (09:30)
[2019-04-05] MEDS: Magnesium Oxide 400 MG TABLET PO SCH (13:59)
[2019-04-06 06:36] VITALS: BP 132/84
[2019-04-06] MEDS: Sacubitril/Valsartan 24/26 MG 1 TABLET PO SCH (08:21)
[2019-04-06] MEDS: carvediloL 6.25 MG TABLET PO SCH (08:21)
[2019-04-06] MEDS: Thiamine (B-1) 100 MG TABLET PO SCH (08:21)
[2019-04-06] MEDS: Folic Acid 1 MG TABLET PO SCH (08:21)
[2019-04-06] MEDS: Vitamin B Complex/Vit C/Vit E 1 EACH TABLET PO SCH (08:21)
[2019-04-06] MEDS: Furosemide 40 MG/4 ML VIAL IVP SCH (08:21)
[2019-04-06] MEDS: Magnesium Oxide 400 MG TABLET PO SCH (08:21)
== END 2019-04-06 10:30 | disposition home or self-care (01) | DRG 304 ==
LOC: 2NENU 09:36 → EMEROOARM 09:36 → SUATTDRO 14:33 → 2NENU 15:48
PROVIDERS: ADMIT Internal Medicine; ATTEND Internal Medicine